=== PATIENT | female | born 1960 | race Caucasian/White ===

== ENCOUNTER 2021-04-19 16:31 | Emergency (ER) | payer OTHER ==
[~2021-04-19] VITALS: Ht 165.1 cm; Wt 113.4 kg
[2021-04-19] MEDS ORDERED: ATIVAN0.5 M1 PO (16:58)
[2021-04-19] MEDS ORDERED: DEXAMETHASONE6 MG PO (16:59)
[2021-04-19] MEDS ORDERED: AZITHROMYCIN500 MG PO (17:00)
[2021-04-19 17:35] LABS: ABSOLUTE LYMPHOCYTES 1.1 thou/uL (0.8-5.3); ABSOLUTE NEUTROPHILS 8.5 thou/uL (1.6-8.1); BASOPHILS 0.1 %; EOSINOPHILS 0.1 %; HEMATOCRIT 32.2 % (37.0-47.0); HEMOGLOBIN 10.4 gm/dL (12.0-15.0); LYMPHOCYTES 10.1 %; MCHC 32.2 g/dL (28.0-37.0); MCV 90.1 fL (80.0-100.0); MONOCYTES 9.2 %; MPV 6.7 fl. (7.2-11.1); NUCLEATED RBCS 0 /100WBC; PLATELET COUNT* 426 thou/uL (150-400); POLYS 80.5 %; RBC 3.58 mil/uL (4.20-5.00); RDW-CV 14.4 % (10.5-14.5); WBC 10.5 thou/uL (4.0-11.0)
[2021-04-19 17:39] LABS: CREATININE 0.7 mg/dL (0.6-1.3)
[2021-04-19 17:52] LABS: ALBUMIN 2.7 g/dL (3.4-5.0); MAGNESIUM 1.9 mg/dL (1.8-2.4); TOTAL BILIRUBIN 0.3 mg/dL (<0.1-1.0); TOTAL PROTEIN 6.2 g/dL (6.4-8.2)
[2021-04-19] MEDS ORDERED: ZPAK PO (18:38)
[2021-04-19] MEDS ORDERED: DEXAMETHASONE 44 M1 PO (18:38)
[2021-04-19] MEDS ORDERED: XANAX 0.5 MG0.5 MG PO (18:38)
[2021-04-19 19:19] VITALS: BP 153/63
--- NOTE | 2021-04-20 09:16 | EKG ---
[place] [address] ELECTROCARDIOGRAM REPORT Name: JOVON PILLAI Room: [facility]#: [id number] Admission: 04/19/21 Attend Phys: Discharge: 04/19/21 Date of : 56 Date of Service: 04/19/21 1726 Report #: [id number] THIS REPORT FOR: //name// [facility] ED Test Date: 2021-04-19 Test Time: 17:26:57 Pat Name: JOVON PILLAI Department: Room: Gender: F [employer] Chief: [id number] : 1960 Requested By: Kermit Cordon Order Number: [id number] MD: Dustin Muñiz Measurements Intervals [place] Rate: 86 P: 67 NE: 191 QRS: 38 QRSD: 115 T: 54 QT: 446 QTc: 534 Interpretive Statements Sinus rhythm Incomplete right bundle branch block No previous ECG available for comparison Electronically Signed On 04-20-2021 9:16:45 CDT by Dustin Muñiz [email or web address] <ELECTRONICALLY SIGNED> By: Dustin Muñiz MD, [facility] 04/20/21 0916 1726 1726 Dustin Muñiz MD, [facility] /EPI
== END 2021-04-19 20:16 | disposition home or self-care (01) ==
LOC: M.ERS 16:31
PROVIDERS: Family Medicine
DX: U07.1 COVID-19 (principal); J44.1 Chronic obstructive pulmonary disease with (acute) exacerbation; Z88.0 Allergy status to penicillin; Z79.899 Other long term (current) drug therapy